=== PATIENT | male | born 1975 | race Caucasian/White ===

== ENCOUNTER 2023-07-27 07:30 | Emergency (ER) | payer SELFPAY ==
[~2023-07-27] VITALS: Ht 182.9 cm; Wt 93.2 kg
[2023-07-27 07:40] VITALS: BP 144/91; TEMP 98.1
[2023-07-27] MEDS ORDERED: oxyCODONE/Acetaminophen 5-325 MG TAB PO ONE (08:00)
[2023-07-27] MEDS ORDERED: Amoxicillin 500 MG CAP PO ONE (08:00)
[2023-07-27] MEDS ORDERED: AMOXICILLIN 50500 MG PO (08:03)
[2023-07-27] MEDS ORDERED: PERCOCET 325 MG1 TA2 PO (08:03)
[2023-07-27 08:16] VITALS: PULSE 61
== END 2023-07-27 08:18 | disposition home or self-care (01) ==
LOC: COL.ER 07:30
DX: K04.7 Periapical abscess without sinus (principal)